=== PATIENT | male | born 2000 | race Caucasian/White ===

== ENCOUNTER 2018-03-29 18:25 | Emergency (ER) | payer OTHER ==
[2018-03-29 18:38] VITALS: BP 137/86
--- NOTE | 2018-03-29 20:17 | ED Physician Documentation ---
PD HPI SKIN - Stated complaint Stated Complaint: RASH - Chief complaint Chief Complaint: Wound - History obtained from History obtained from: Patient, Family - History of Present Illness Timing - onset: Today Timing - details: Gradual onset Location: Bodywide Quality / character: Itchy Contributing factors: Unknown Similar symptoms before: Has not had sx before - Additional information Additional information: father says that patient has had generalized itching since this afternoon, onset while at school, and he (father) was told by someone from the school that patient has a rash and would need a note to indicate whether this is contagious (and thus whether he is able to return to school on Sunday or not) Review of Systems Constitutional: denies: Fever Respiratory: denies: Dyspnea Skin: reports: Rash PD PAST MEDICAL HISTORY - Past Medical History Past Medical History: Yes Other Past Medical History: autism - Allergies Allergies/Adverse Reactions: Allergies Allergy/AdvReac Type Severity Reaction Status Date / Time No Known Drug Allergies Allergy Verified 03/29/18 18:38 PD ED PE NORMAL - Vitals Vital signs reviewed: Yes - General General: Alert and oriented X 3, No acute distress, Well developed/nourished - Extremities Extremities: No edema PD ED PE EXPANDED - Derm Derm: Other (diffuse erythematous papules at base of follicles on back (upper and lower) and chest and abdomen, fewer on BUE (only at base of follicles). ) Results - Vitals Vitals: Vital Signs - 24 hr 03/29/18 18:35 Temperature 35.7 C L Heart Rate 70 Respiratory 16 Rate Blood Pressure 137/86 H O2 Saturation 99 Oxygen O2 Source Room air PD MEDICAL DECISION MAKING - ED course Complexity details: considered differential, d/w patient, d/w family ED course: Father says the rash does not appear new to him; father says he does not appreciate any new rash, although he has observed some scratching behavior this afternoon and evening which is unusual for patient. Departure - Departure Disposition: 01 Home, Self Care Clinical Impression: Folliculitis Condition: Good Instructions: ED Folliculitis Comments: Can take an antihistamine such as benadryl (may cause drowsiness, so try to only use at night or when home) or claritin (typically causes less drowsiness) as per label instructions as needed for rash/itching Forms: Activity restrictions
== END 2018-03-29 20:33 | disposition home or self-care (01) ==
LOC: ED 18:25
DX: L73.9 Follicular disorder, unspecified (principal)
CPT/HCPCS: 99282